=== PATIENT | male | born 1975 ===

== ENCOUNTER 2017-01-23 10:01 | Emergency (ER) | payer OTHER ==
[2017-01-23 10:21] VITALS: TEMP 98
[2017-01-23 10:26] VITALS: BMI 29.7
--- NOTE | 2017-01-23 10:28 | ED PDOC ---
HPI: General Adult Time Seen by Provider: 01/23/17 10:04 Chief Complaint (Provider): right ankle pain History Per: Patient History/Exam Limitations: no limitations Additional Complaint(s): 41yo male comes to the ED complaining of 2 days of right ankle pain. States when he was getting out of the car he slipped and fell. Comes in today due to swelling. Patient is using crutches given to him by a friend. Past Medical History Reviewed: Historical Data, Nursing Documentation, Vital Signs Vital Signs: Last Vital Signs Temp 98.0 F 01/23/17 10:20 Pulse 66 01/23/17 10:20 Resp 16 01/23/17 10:20 BP 126/84 01/23/17 10:20 Pulse Ox 100 01/23/17 10:30 - Medical History PMH: No Chronic Diseases - Surgical History Surgical History: No Surg Hx - Family History Family History: States: Unknown Family Hx - Allergies Allergies/Adverse Reactions: Allergies Allergy/AdvReac Type Severity Reaction Status Date / Time No Known Allergies Allergy Verified 01/23/17 10:30 Review of Systems Musculoskeletal: Positive for: Other (ankle pain) Physical Exam - Reviewed Nursing Documentation Reviewed: Yes Vital Signs Reviewed: Yes - Physical Exam Appears: Positive for: Well, Non-toxic, No Acute Distress Head Exam: Positive for: ATRAUMATIC, NORMAL INSPECTION, NORMOCEPHALIC Extremity: Positive for: Other (Good pulses bilaterally. Mildly warmer on right ankle compared to left ankle. Right llateral malleolus mild swelling. Pain on dorsi flexion. Negative Homans.). Negative for: Calf Tenderness - ECG O2 Sat by Pulse Oximetry: 100 (RA) Pulse Ox Interpretation: Normal Disposition - Clinical Impression Clinical Impression: Calcaneal fracture - Patient ED Disposition Is Patient to be Admitted: No Doctor Will See Patient In The: Office Counseled Patient/Family Regarding: Diagnosis, Need For Followup - Disposition Disposition: Routine/Home Disposition Time: 16:59 Condition: STABLE Additional Instructions: Make appointment to see Dr. Stevens [phone] [place] [address] Instructions: Calcaneal Fracture (ED) Print Language: ANGOLAN - POA Present On Arrival: Falls Or Trauma Additional Comments - Additional Comments Additional Comments: Scribe Attestation: Documented by Deny Chairez acting as a scribe for Cassandra Portillo MD. Provider Scribe Attestation: All medical record entries made by the Scribe were at my direction and personally dictated by me. I have reviewed the chart and agree that the record accurately reflects my personal performance of the history, physical exam, medical decision making, and the department course for this patient. I have also personally directed, reviewed, and agree with the discharge instructions and disposition.
--- NOTE | 2017-01-23 12:25 | RAD ---
PROCEDURE: Right Ankle Radiographs. HISTORY: slipped 2 days ago COMPARISON: None FINDINGS: BONES: Acute calcaneal fracture. The fracture extends to the plantar aspect of the calcaneus hand proximally posteriorly through the calcaneus. JOINTS: Normal. No osteoarthritis. Ankle mortise maintained. Talar dome intact SOFT TISSUES: Soft tissue swelling attests to the acuity of the fracture. OTHER FINDINGS: None. IMPRESSION: Acute, comminuted fracture of the right calcaneus.
--- NOTE | 2017-01-23 12:27 | RAD ---
PROCEDURE: Right Foot Radiographs. HISTORY: slipped 2 days ago COMPARISON: Right ankle radiographs FINDINGS: BONES: Known fracture of the calcaneus. No additional acute osseous abnormalities. Visualized tarsals, metatarsals and phalanges within normal limits. JOINTS: Normal. SOFT TISSUES: Normal. OTHER FINDINGS: None. IMPRESSION: Acute and comminuted calcaneal fracture.
--- NOTE | 2017-01-23 13:07 | CP.PCM.CON ---
History of Present Illness - History of Present Illness History of Present Illness: PODIATRY PROGRESS NOTE DR. STEVENS: 41 yo male patient presents today with right right foot/ankle pain. Says he slipped and fell while getting out of car 2 days ago. Says he has been walking on the foot since the injury, started using crutches (given to him by a friend) yesterday because of the pain and swelling he has developed to the foot. Denies any other injuries. Denies numbness, tingling, numbness to the foot or leg. Denies f/n/v/c/sob/cp. Denies taking pain medication or icing the foot. PMH: denies ALL: denies Meds: denies Surg. Hx: denies Soc. Hx: lives in [place] w/ family, works as a equipment or machinery cleaner, chews tobacco ( denies ever smoking), occasional ETOH, denies illicit drug use PMD: Dr. Stanton Review of Systems - Review of Systems Review of Systems: All systems reviewed and found to be negative, except HPI findings above Past Patient History - Past Social History Smoking Status: Never Smoked - PSYCHIATRIC Hx Substance Use: No - SURGICAL HISTORY Hx Surgeries: No Meds Allergies/Adverse Reactions: Allergies Allergy/AdvReac Type Severity Reaction Status Date / Time No Known Allergies Allergy Verified 01/23/17 10:30 Physical Exam - Constitutional Appears: Well, Non-toxic, No Acute Distress - Extremities Exam Extremities exam: Negative for: calf tenderness Additional comments: RLE exam: VASC- DP/PT pulses palpable (2/4), skin temp runs warm to cool, cap refill < 3 sec to digits x 5, moderate non-pitting edema noted to dorsum of foot and medial and lateral posterior calcaneus DERM- no open wounds/lacs, ecchymosis is noted to posterior-medial and posterior -lateral aspect of calcaneus NEURO- gross pedal sensation is intact ORTHO- tendenernss to palpation of posterior-medial and post-lateral aspect calcaneus, able to wiggle all toes freely, AJ limited due to edema and guarding , pedal muscle strength 5/5 in all directions - Neurological Exam Neurological exam: Alert, CN II-XII Intact, Oriented x3 - Psychiatric Exam Psychiatric exam: Normal Affect, Normal Mood Results - Vital Signs Recent Vital Signs: Last Vital Signs Temp 98.0 F 04/26/17 10:20 Pulse 66 01/23/17 10:20 Resp 16 01/23/17 10:20 BP 126/84 01/23/17 10:20 Pulse Ox 100 01/23/17 10:30 Assessment & Plan - Assessment and Plan (Free Text) Assessment: 41 yo male pt w/ no pmhx. w/ comminuted, displaced intra-articular calcaneal fracture of right foot Plan: -Pt S&E at bedside in ED -Discussed with Dr. Bran Stevens -Chart, vitals reviewed: afebrile -Posterior splint applied to RLE and leg elevated to level of heart on pillows/ blankets -Ice behind knee 20 min on/off -Strict NWB to right low. ext -Right ankle x-rays reviewed: acute, comminuted fracture of the right calcaneus. -Right foot x-rays: Comminuted fracture of the calcaneus. Major fracture fragments are anatomically aligned. No abnormalities with respect to the talar calcaneal anatomic relationship. -Discussed findings w/ patient and that he will require surgery given nature of fracture -Pt to f/u w/ Dr. Stevens in the [place] office (to call and make appt) to schedule surgery as outpatient
--- NOTE | 2017-01-23 15:35 | CT ---
PROCEDURE: Right lower extremity CT scan. HISTORY: Calcaneal fracture. COMPARISON: January 23, 2017. TECHNIQUE: 2.5 mm axial acquisition and display. Coronal and sagittal reconstructions. Dose report (mGy-cm): 327.72. FINDINGS: Comminuted fracture of the calcaneus with intra-articular components including the plantar aspect extending to the talocalcaneal surface. Preservation of anatomic alignment major fracture fragments. Talar calcaneal joint, anatomic alignment preserved. Unremarkable distal tibia and fibula. No acute osseous abnormalities with respect to the talus. Considerable soft tissue swelling intestine the acuity of the fracture. Achilles tendon preserved as is its insertion on the calcaneus. IMPRESSION: Comminuted fracture of the calcaneus. Major fracture fragments are anatomically aligned. No abnormalities with respect to the talar calcaneal anatomic relationship.
[2017-01-23 17:16] VITALS: BP 123/78; PULSE 82; RESP 18; O2SAT 98
== END 2017-01-23 17:16 | disposition home or self-care (01) ==
LOC: H.ER 10:01
DX: S92.001A Unspecified fracture of right calcaneus, initial encounter for closed fracture (principal); W01.0XXA Fall on same level from slipping, tripping and stumbling without subsequent striking against object, initial encounter; Y92.410 Unspecified street and highway as the place of occurrence of the external cause

== ENCOUNTER 2018-11-19 19:15 | Emergency (ER) | payer OTHER ==
[2018-11-19 19:15] VITALS: BMI 29.7
[2018-11-19 19:24] VITALS: BP 146/85; PULSE 87; RESP 16; TEMP 97.2; O2SAT 99
--- NOTE | 2018-11-19 20:00 | ED PDOC ---
Lower Extremity Pain/Injury Time Seen by Provider: 11/19/18 19:50 Chief Complaint (Nursing): Lower Extremity Problem/Injury Chief Complaint (Provider): Lower Extremity Problem/Injury History Per: Patient History/Exam Limitations: no limitations Onset/Duration Of Symptoms: Days (x15) Current Symptoms Are (Timing): Still Present Additional Complaint(s): Patient is a 43 y/o male with no significant PMHx who presents to the ED for evaluation of left knee pain with increased swelling for the last 15 days. Patient is requesting removal of fluid from knee. Patient denies any recent falls or trauma. PCP: None Provided Past Medical History Reviewed: Historical Data, Nursing Documentation, Vital Signs Vital Signs: Last Vital Signs Temp 97.2 F L 11/19/18 19:22 Pulse 87 11/19/18 19:22 Resp 16 11/19/18 19:22 BP 146/85 11/19/18 19:22 Pulse Ox 99 11/19/18 19:22 - Medical History PMH: No Chronic Diseases - Surgical History Surgical History: No Surg Hx - Family History Family History: States: Unknown Family Hx - Immunization History Hx Tetanus Toxoid Vaccination: No Hx Influenza Vaccination: No Hx Pneumococcal Vaccination: No - Home Medications Home Medications: Ambulatory Orders Medication Instructions Recorded Naproxen 375 mg PO Q8 PRN #21 tablet 11/19/18 - Allergies Allergies/Adverse Reactions: Allergies Allergy/AdvReac Type Severity Reaction Status Date / Time No Known Allergies Allergy Verified 11/19/18 19:21 Review of Systems ROS Statement: Except As Marked, All Systems Reviewed And Found Negative Constitutional: Negative for: Fever Musculoskeletal: Positive for: Other (left knee pain) Physical Exam - Reviewed Nursing Documentation Reviewed: Yes Vital Signs Reviewed: Yes - Physical Exam Appears: Positive for: No Acute Distress Head Exam: Positive for: ATRAUMATIC, NORMAL INSPECTION, NORMOCEPHALIC Skin: Positive for: Normal Color, Warm, Dry Eye Exam: Positive for: EOMI, Normal appearance, PERRL Neck: Positive for: Normal, Painless ROM, Supple Cardiovascular/Chest: Positive for: Regular Rate, Rhythm. Negative for: Murmur Respiratory: Positive for: Normal Breath Sounds. Negative for: Respiratory Distress Extremity: Positive for: Normal ROM (normal flexion and extension of knee with minimal difficulty), Swelling, Other (mild diffusion). Negative for: Pedal Edema (or erythema), Deformity Neurologic/Psych: Positive for: Alert, Oriented. Negative for: Motor/Sensory Deficits - ECG O2 Sat by Pulse Oximetry: 99 (RA) Pulse Ox Interpretation: Normal Medical Decision Making Medical Decision Making: Time: 1950 Impression: Knee Pain Plan: Knee 3 Views LT [Rad] Toradol 30 mg IM ---- Scribe Attestation: Documented by Naren Guadarrama, acting as a scribe for LOLITA Constantino. Provider Scribe Attestation: All medical record entries made by the Scribe were at my direction and personally dictated by me. I have reviewed the chart and agree that the record accurately reflects my personal performance of the history, physical exam, medical decision making, and the department course for this patient. I have also personally directed, reviewed, and agree with the discharge instructions and disposition. Disposition - Clinical Impression Clinical Impression: Knee pain, left - Patient ED Disposition Is Patient to be Admitted: No - Disposition Referrals: Chavez Durán III, MD [Staff Provider] - [facility] [place] [facility] [Outside] Disposition: Routine/Home Disposition Time: 20:38 Condition: FAIR Prescriptions: Naproxen 375 mg PO Q8 PRN #21 tablet PRN Reason: Pain, Moderate (4-7) Instructions: Knee Pain (DC) Forms: [facility] ED School/Work Excuse Print Language: IVORIAN
--- NOTE | 2018-11-20 08:11 | RAD ---
Date of service: 11/19/2018 PROCEDURE: Left Knee Radiographs. HISTORY: Pain. COMPARISON: None. FINDINGS: BONES: No acute fracture or destructive bony lesion identified. JOINTS: Patellofemoral and medial femorotibial compartment joint space narrowing appears mild with limited osteophyte development at the patellar articular margins in the periphery. No subluxation or dislocation identified. JOINT EFFUSION: [id number] suprapatellar bursa effusion identified. OTHER FINDINGS: None. IMPRESSION: No acute fracture, subluxation or dislocation identified. [id number] suprapatellar bursa effusion. Mild bicompartmental osteoarthritis appreciated.
== END 2018-11-19 20:52 | disposition home or self-care (01) ==
LOC: H.ER 19:15
DX: M25.562 Pain in left knee (principal)
CPT/HCPCS: 73562; 96372; 99283; J1885